=== PATIENT | female | born 1970 | race Asian ===

== ENCOUNTER 2016-03-23 18:18 | Emergency (ER) | payer OTHER ==
--- NOTE | 2016-03-23 19:24 | UCPHY ---
H & P Patient Type: Established Chief Complaint Nursing Narrative: body aches since ~9 days,. A little cough in the am . 1400 yana hay cold and flu pills @ 1400 Time Seen by Provider: 03/23/16 19:03 HPI/ROS: This patient presents with a chief complaint of generalized myalgias and subjective fever for 9 days. She also admits to a mild cough, fatigue and diminished appetite but denies URI symptoms or GI symptoms other than anorexia. She has noticed that her muscles are tender to the touch. REVIEW OF SYSTEMS: Constitutional: Fatigue, fever Eyes: No complaints ENT: Denies sore throat, nasal congestion and ear pain. Respiratory: Mild cough, no shortness of breath Cardiac: Denies chest pain Gastrointestinal: Anorexia without nausea, vomiting, diarrhea or constipation or abdominal pain. Genitourinary: Chief feels that he she has been urinating less frequently than usual. Denies dysuria, frequency or urgency Musculoskeletal: Generalized myalgias Skin: Denies rash Neurological: Headache Source: Patient, RN notes reviewed Exam Limitations: No limitations - Personal History LMP (Females 10-55): 22-28 Days Ago Tetanus Vaccine Date: 2009 - Medical/Surgical History Hx Asthma: No Hx Chronic Respiratory Disease: No Hx Diabetes: No Hx Cardiac Disease: No Hx Renal Disease: No Hx Cirrhosis: No Hx Alcoholism: No Hx HIV/AIDS: No Hx Splenectomy or Spleen Trauma: No Other PMH: Pcp Bacilio Ramirez. FLu Vacc . Surg : Appy - Family History Significant Family History: No pertinent family hx - Social History Smoking Status: Never smoked - Physical Exam Exam: GENERAL: Well-appearing, well-nourished and in moderate distress. HEAD: Atraumatic, normocephalic. EYES: Pupils equal round and reactive to light, extraocular movements intact, sclera anicteric, conjunctiva are normal. ENT: nares patent, oropharynx clear without exudates. Moist mucous membranes. NECK: Normal range of motion, supple without lymphadenopathy or JVD. There is diffuse posterior tenderness LUNGS: Breath sounds clear to auscultation bilaterally and equal. No wheezes rales or rhonchi. HEART: Regular rate and rhythm without murmurs, rubs or gallops. ABDOMEN: Soft, nontender, normoactive bowel sounds. No guarding, no rebound. No masses appreciated. EXTREMITIES: Normal range of motion, no pitting or edema. No clubbing or cyanosis. NEUROLOGICAL: Cranial nerves II through XII grossly intact. Normal speech, normal gait. PSYCH: Normal mood, normal affect. SKIN: Warm, dry, normal turgor, no visible rashes or lesions. Musculoskeletal: There is diffuse tenderness of all muscle groups primarily proximal involving the back as well. There is some hyperesthesia. Constitutional: Initial Vital Signs Temperature (C) 36.6 C 03/23/16 18:28 Heart Rate 107 H 03/23/16 18:28 Respiratory Rate 16 03/23/16 18:28 Blood Pressure 141/82 H 03/23/16 18:28 O2 Sat (%) 99 03/23/16 18:28 O2 Delivery Mode Room Air Allergies/Adverse Reactions: No Known Allergies Allergy (Verified 03/23/16 18:34) Home Medications: Medication Instructions Recorded Ativan 11/07/13 Cetirizine [ZyrTEC 10 mg (RX)] 11/16/14 DULoxetine [Cymbalta] 40 11/16/14 Medical Decision Making Differential Diagnosis: I can find nothing to suggest that this patient's symptoms are related to a serious illness. Initially I was concerned about myositis or even rhabdomyolysis but we have excluded that possibility. I was also concerned about renal failure because of her use of ibuprofen but this also has proved to be unfounded. The negative influenza test is excluded this is a possibility but a nonspecific viral illness could potentially explain this patient's symptoms. - Data Points Laboratory Results: Laboratory Results 03/23/16 20:12 03/23/16 20:12 03/23/16 03/23/16 20:12 19:40 WBC 10.03 H 10^3/uL (3.80-9.50) RBC 4.74 10^6/uL (4.18-5.33) Hgb 14.3 g/dL (12.6-16.3) Hct 40.5 % (38.0-47.0) MCV 85.4 fL (81.5-99.8) MCH 30.2 pg (27.9-34.1) MCHC 35.3 g/dL (32.4-36.7) RDW 13.7 % (11.5-15.2) Plt Count 353 10^3/uL (150-400) MPV 8.8 fL (8.7-11.7) Neut % (Auto) 55.9 % (39.3-74.2) Lymph % (Auto) 31.8 % (15.0-45.0) Mcmullen % (Auto) 9.7 % (4.5-13.0) Eos % (Auto) 1.7 % (0.6-7.6) Baso % (Auto) 0.6 % (0.3-1.7) Nucleat RBC Rel Count 0.0 % (0.0-0.2) Absolute Neuts (auto) 5.61 10^3/uL (1.70-6.50) Absolute Lymphs (auto) 3.19 H 10^3/uL (1.00-3.00) Absolute Monos (auto) 0.97 H 10^3/uL (0.30-0.80) Absolute Eos (auto) 0.17 10^3/uL (0.03-0.40) Absolute Basos (auto) 0.06 10^3/uL (0.02-0.10) Absolute Nucleated RBC 0.00 10^3/uL (0-0.01) Immature Gran % 0.3 % (0.0-1.1) Immature Gran # 0.03 10^3/uL (0.00-0.10) Sodium 137 mEq/L (134-144) Potassium 4.0 mEq/L (3.5-5.2) Chloride 102 mEq/L (97-110) Carbon Dioxide 24 mEq/l (22-31) Anion Gap 11 mEq/L (8-16) BUN 8 mg/dL (7-23) Creatinine 0.6 mg/dL (0.6-1.0) Estimated GFR > 60 Glucose 87 mg/dL (70-100) Calcium 9.3 mg/dL (8.5-10.4) Total Bilirubin 0.5 mg/dL (0.1-1.4) AST 37 IU/L (14-46) ALT 54 H IU/L (9-52) Alkaline Phosphatase 68 IU/L (38-126) Creatine Kinase 70 IU/L (0-156) Total Protein 7.3 g/dL (6.3-8.2) Albumin 3.7 g/dL (3.5-5.0) Urine Color YELLOW Urine Appearance CLEAR Urine pH 7.0 (5.0-7.5) Ur Specific [place] <= 1.005 (1.002-1.030) Urine Protein NEGATIVE (NEGATIVE) Urine Ketones NEGATIVE (NEGATIVE) Urine Blood NEGATIVE (NEGATIVE) Urine Nitrate NEGATIVE (NEGATIVE) Urine Bilirubin NEGATIVE (NEGATIVE) Urine Urobilinogen 0.2 EU (0.2-1.0) Ur Leukocyte Esterase NEGATIVE (NEGATIVE) Urine Glucose NEGATIVE (NEGATIVE) Influenza Typ A,B (DFA) NEGATIVE FOR FLU (NEGATIVE) Departure - Departure Disposition: Home, Routine, Self-Care Clinical Impression: Myalgia Condition: Good Instructions: Musculoskeletal Pain (ED) Additional Instructions: If your symptoms have not improved in 2 or 3 days you should follow-up with her primary care physician. Keep herself well hydrated but do not force herself to eat. Adult Pain & Fever Control: We recommend Acetaminophen (Tylenol) and Ibuprofen (Motrin, Advil) for pain and fever control. When fever is high or pain severe, both drugs can be used at the same time, but at different intervals. Please note the time differences. Your dose is: Acetaminophen [650]mg every 4 to 6 hours ibuprofen [600]mg every [6] hours with food OR naproxen Sodium (Aleve) [440]mg every 12 hours. Note: do not take Acetaminophen with Hydrocodone (Vicodin, Lortab) or Oxycodone (Percocet). These medications also contain Acetaminophen. No more than 3000 mg of Acetaminophen should be taken in 24 hours (for an adult) . The maximal dose of ibuprofen that it is safe in a 24-hour period is 2400 mg. You may take 400 mg every 4 hours, 600 mg every 6 hours or 800 mg every 8 hours safely. Referrals: Klever Ramirez DO [Primary Care Provider] - As per Instructions - PQRS PQRS Measurement: Not applicable
[2016-03-23 19:54] LABS: COLOR YELLOW; LEUKOCYTE ESTERASE,URINE NEGATIVE (NEGATIVE); NITRITE,URINE NEGATIVE (NEGATIVE)
[2016-03-23 20:17] LABS: % IMMATURE GRANULYOCYTES 0.3 % (0.0-1.1); ABSOLUTE IMMATURE GRANULOCYTES 0.03 10^3/uL (0.00-0.10); ADD DIFF? NO; ADD MORPH? NO; ADD SCAN? NO; ATYPICAL LYMPHOCYTE FLAG 0 (0-99); FRAGMENT RBC FLAG 0 (0-99); HEMATOCRIT 40.5 % (38.0-47.0); HEMOGLOBIN 14.3 g/dL (12.6-16.3); LEFT SHIFT FLG 0 (0-99); LIPEMIA HEMOLYSIS FLAG 90 (0-99); MEAN CELL HEMOGLOBIN 30.2 pg (27.9-34.1); MEAN CELL HEMOGLOBIN CONCENTR. 35.3 g/dL (32.4-36.7); MEAN CELL VOLUME 85.4 fL (81.5-99.8); MEAN PLATELET VOLUME 8.8 fL (8.7-11.7); PLATELET CLUMPS FLAG 0 (0-99); PLATELET COUNT 353 10^3/uL (150-400); RED BLOOD CELL COUNT 4.74 10^6/uL (4.18-5.33); RED CELL DISTRIBUTION WIDTH 13.7 % (11.5-15.2)
[2016-03-23 20:29] LABS: ALANINE AMINOTRANSFERASE 54 IU/L (9-52); ALBUMIN 3.7 g/dL (3.5-5.0); ALKALINE PHOSPHATASE 68 IU/L (38-126); ANION GAP 11 mEq/L (8-16); ASPARTATE AMINOTRANSFERASE 37 IU/L (14-46); BILIRUBIN,TOTAL 0.5 mg/dL (0.1-1.4); CALCIUM 9.3 mg/dL (8.5-10.4); CARBON DIOXIDE 24 mEq/l (22-31); CHLORIDE 102 mEq/L (97-110); CREATININE 0.6 mg/dL (0.6-1.0); GLOMERULAR FILTRATION RATE > 60; GLUCOSE 87 mg/dL (70-100); SODIUM 137 mEq/L (134-144); TOTAL PROTEIN 7.3 g/dL (6.3-8.2)
[2016-03-23 22:09] VITALS: BP 124/67; PULSE 95; RESP 18; TEMP 99; O2SAT 95
== END 2016-03-23 22:08 | disposition home or self-care (01) ==
LOC: CED 18:18
DX: M79.1 Myalgia (principal); R05 Cough; R53.83 Other fatigue; F50.89 Other specified eating disorder
CPT/HCPCS: 80053-PO; 81003-PO; 82550-PO; 85025-PO; 87400-PO; 99214-PO; G0463-PO

== ENCOUNTER → 2016-12-15 | Outpatient (CLI) | payer OTHER | LOC: BRMIMAGING 14:19 | PROVIDERS: ATTEND Family Medicine | DX: Z12.31 Encounter for screening mammogram for malignant neoplasm of breast (principal) | CPT/HCPCS: G0202 ==

== ENCOUNTER → 2017-12-16 | Outpatient (CLI) | payer OTHER | LOC: BRMIMAGING 07:42 | PROVIDERS: ATTEND Family Medicine | DX: Z12.31 Encounter for screening mammogram for malignant neoplasm of breast (principal) ==

== ENCOUNTER → 2018-01-03 | Outpatient (CLI) | payer OTHER | LOC: BRMIMAGING 09:47 | PROVIDERS: ATTEND Family Medicine | DX: R92.8 Other abnormal and inconclusive findings on diagnostic imaging of breast (principal) | CPT/HCPCS: 76641-PO ==

== ENCOUNTER → 2018-06-13 | Outpatient (CLI) | payer OTHER | LOC: BRMIMAGING 09:09 | PROVIDERS: ATTEND Family Medicine | DX: R92.8 Other abnormal and inconclusive findings on diagnostic imaging of breast (principal) ==